=== PATIENT | female | born 1970 | race Two or more races ===

== ENCOUNTER 2020-02-21 06:10 | Day surgery (SDC) | payer OTHER ==
[~2020-02-21 06:10] MED LIST: FIORICET PO
[2020-02-22] MEDS ORDERED: NEURONTIN300 MG PO ×2 (09:04)
[2020-02-22] MEDS ORDERED: KETO10TA2 PO ×2 (09:04)
[2020-02-22] MEDS ORDERED: PERCOCET 5-3251 EACH PO ×2 (09:05)
== END 2020-02-21 14:50 | disposition home or self-care (01) ==
LOC: AMB-ENDOS 06:10
PROVIDERS: ATTEND Surgery
DX: K62.89 Other specified diseases of anus and rectum (principal); Z12.11 Encounter for screening for malignant neoplasm of colon

== ENCOUNTER 2020-02-22 06:10 | Day surgery (SDC) | payer OTHER ==
[2020-02-22] MEDS ORDERED: NEURONTIN300 MG PO ×2 (09:04)
[2020-02-22] MEDS ORDERED: KETO10TA2 PO ×2 (09:04)
[2020-02-22] MEDS ORDERED: PERCOCET 5-3251 EACH PO ×2 (09:05)
== END 2020-02-22 14:00 | disposition home or self-care (01) ==
LOC: CIR.AMB 06:10
PROVIDERS: ATTEND Surgery
DX: K64.8 Other hemorrhoids (principal); K62.0 Anal polyp; Z20.828 Contact with and (suspected) exposure to other viral communicable diseases